=== PATIENT | male | born 1990 | race Caucasian/White ===

== ENCOUNTER 2025-06-08 09:02 | Outpatient (CLI) | payer OTHER | END 2025-06-08 09:03 | disposition home or self-care (01) | LOC: CSHSLEEP 09:02 | PROVIDERS: ATTEND Internal Medicine Critical Care Medicine | DX: G47.33 Obstructive sleep apnea (adult) (pediatric) (principal); R53.83 Other fatigue; R06.83 Snoring | CPT/HCPCS: 95810 ==